=== PATIENT | female | born 1955 | race Caucasian/White ===

== ENCOUNTER 2021-05-17 11:49 | Emergency (ER) | payer OTHER, BC ==
[~2021-05-17] VITALS: Ht 170.2 cm; Wt 95.3 kg
[2021-05-17 12:05] VITALS: BP 180/99
[2021-05-17] MEDS ORDERED: ALBUTEROL SULFATE/IPRATROPIU 3 ML SOL IH ONE ×2 (12:15→12:40)
--- NOTE | 2021-05-17 12:41 | NUR ---
66 y/o female, c/o productive cough, fatigue, body aches, n&v, and sob for 5 days at this time. 02 saturation in triage 97% ra. denies fever, chills, diarrhea, constipation, dysuria, or hematuria. lung bases crackles inspiratory and expiratory bl, heart rate even and regular. pmh: htn, hld nka
[2021-05-17] MEDS ORDERED: PRED20TA5 PO (13:16)
[2021-05-17] MEDS ORDERED: NAPR-54 PO (13:16)
[2021-05-17] MEDS ORDERED: ALBU0.0912 IH (13:16)
[2021-05-17] MEDS ORDERED: PROM118S5 PO (13:16)
[2021-05-17] MEDS ORDERED: BENZ100C6 PO (13:51)
[2021-05-17 14:00] VITALS: BP 180/99
--- NOTE | 2021-05-17 14:01 | NUR ---
Patient discharged with v/s stable. Written and verbal after care instructions given and explained. Patient alert, oriented and verbalized understanding of instructions. Ambulatory with by parent. All questions addressed prior to discharge. ID band removed. Patient advised to follow up with PMD. Rx of albuterol, naproxen, prednisone, promethazine (sent) given. Patient educated on indication of medication including possible reaction and side effects. Opportunity to ask questions provided and answered.
--- NOTE | 2021-05-17 14:01 | NUR ---
novel swabbed at this time
== END 2021-05-17 14:01 | disposition home or self-care (01) ==
LOC: MED 11:49
DX: B34.9 Viral infection, unspecified (principal); Z20.822 Contact with and (suspected) exposure to COVID-19; I10 Essential (primary) hypertension; Z90.49 Acquired absence of other specified parts of digestive tract; Z98.890 Other specified postprocedural states; Z79.899 Other long term (current) drug therapy
CPT/HCPCS: 71045; 93005; 94640; 99285; U0003